=== PATIENT | male | born 1965 | race Caucasian/White ===

== ENCOUNTER 2016-11-19 16:52 | Emergency (ER) | payer MEDICAID, OTHER ==
[~2016-11-19] VITALS: Ht 165.1 cm; Wt 60.0 kg
[~2016-11-19 16:52] MED LIST: BENZ2 PO; CITA20 PO; GABA300 PO; QUET200 PO; RISP2TAB2 PO; SERO400T3 PO; SERT100 PO; SYMB160A INH; TRAZ100T4 PO
[2016-11-19 17:03] VITALS: BP 121/79; PULSE 76; RESP 18; TEMP 98.7; O2SAT 94
--- NOTE | 2016-11-19 17:14 | PD ---
HPI Chief Complaint: Psychiatric Symptoms Time Seen by Provider: 17:10 Travel History International Travel<30 days: No Contact w/Intl Traveler<30days: No Traveled to known affect area: No History of Present Illness HPI 51-year-old male presents to the emergency Department under Philippe act, sent from [facility]. According the AbilTo act, the patient is under Philippe act for suicidal ideation. He has a history of bipolar disorder. Patient was apparently at [facility], he started banging his head against the wall, causing a laceration. The patient will not answer my questions and states "I don't care". He does state that he wants to kill himself, but will not elaborate. Patient denies any alcohol, tobacco, illicit drug use. He will not tell me what medications he is on. He is unsure of his tetanus immunization is up-to-date. PFSH Past Medical History Medical History: Denies Significant Hx Arthritis: No Asthma: Yes Bipolar Disorder: Yes Anxiety: Yes (MANIC) Depression: Yes Heart Rhythm Problems: No High Cholesterol: Yes Chemotherapy: No Chest Pain: No Congestive Heart Failure: No COPD: No Cerebrovascular Accident: No Diminished Hearing: No Endocrine: No Gastrointestinal Disorders: Yes GERD: No Genitourinary: No Hiatal Hernia: No Hypertension: Yes Immune Disorder: No Implanted Vascular Access Dvce: No Kidney Stones: No Musculoskeletal: No Neurologic: No Reproductive: No Respiratory: Yes (ASTHMA) Immunizations Current: Yes Migraines: No Radiation Therapy: No Renal Failure: No Schizophrenia: Yes Sickle Cell Disease: No Sleep Apnea: Yes Thyroid Disease: No Ulcer: No Tetanus Vaccination: < 5 Years Influenza Vaccination: Yes PNEUMOCCOCAL Vaccine (Year): 2 Past Surgical History Abdominal Surgery: Yes AICD: No Arteriovenous Shunt: No Cardiac Surgery: No Ear Surgery: No Endocrine Surgery: No Eye Surgery: No Genitourinary Surgery: No Gynecologic Surgery: No Insulin Pump: No Joint Replacement: No Oral Surgery: Yes (Endentulous) Pacemaker: No Thoracic Surgery: No Other Surgery: Yes Social History Alcohol Use: Yes (a few nights ago) Tobacco Use: Yes (7 CIGS DAILY) Substance Use: Yes (CRACK COCAINE) Allergies-Medications (Allergen,Severity, Reaction): Coded Allergies: No Known Allergies (Verified , 11/26/15) Per MAR from facility - NKDA. Reported Meds & Prescriptions Reported Meds & Active Scripts Active Quetiapine Fumarate 200 Mg Tab 400 Mg PO HS 7 Days Benztropine Mesylate 2 Mg Tab 2 Mg PO Q12HR 7 Days Neurontin (Gabapentin) 300 Mg Cap 300 Mg PO BID Symbicort (Budesonide/Formoterol Fumarate) 160 Mcg/4.5 Mcg Aer 2 Puff INH BID Celexa 20 Mg Tab (Citalopram Hydrobromide) 20 Mg Tab 20 Mg PO DAILY Benztropine Mesylate 2 Mg Tab 2 Mg PO DAILY Reported Seroquel XR 400 mg (Quetiapine Fumarate) 400 Mg Tab 400 Mg PO HS Physical Exam Exam Limitations: Psychotic Narrative GENERAL: Well-nourished, well-developed male patient, afebrile. SKIN: Focused skin assessment warm/dry. HEAD: Normocephalic. Patient has a [-] laceration to the occipital scalp. EYES: No scleral icterus. No injection or drainage. NECK: Supple, trachea midline. No JVD or lymphadenopathy. CARDIOVASCULAR: Regular rate and rhythm without murmurs, gallops, or rubs. RESPIRATORY: Breath sounds equal bilaterally. No accessory muscle use. Lungs sounds clear to auscultation. GASTROINTESTINAL: Abdomen soft, non-tender, nondistended. MUSCULOSKELETAL: No cyanosis, or edema. PSYCHIATRIC: Patient keeps saying that "I want to ". He will not answer my questions. Data Data Last Documented VS Vital Signs Date Time Temp Pulse Resp B/P Pulse Ox O2 Delivery O2 Flow Rate FiO2 11/19/16 17:03 98.7 76 18 121/79 94 Orders Complete Blood Count With Diff (11/19/16 17:08) Comprehensive Metabolic Panel (11/19/16 17:08) Psych Screen (11/19/16 17:08) Drug Screen, Random Urine (11/19/16 17:08) Alcohol (Ethanol) (11/19/16 17:08) Salicylates (Aspirin) (11/19/16 17:08) Tylenol (Acetaminophen) (11/19/16 17:08) Tetanus/Diphtheria Tox Adult (Tetanus/Di (11/19/16 17:15) Ct Brain W/O Iv Contrast(Rout) (11/19/16 ) Labs Laboratory Tests Test 11/19/16 17:23 White Blood Count 8.6 TH/MM3 Red Blood Count 5.05 MIL/MM3 Hemoglobin 15.1 GM/DL Hematocrit 45.3 % Mean Corpuscular Volume 89.8 FL Mean Corpuscular Hemoglobin 29.9 PG Mean Corpuscular Hemoglobin 33.4 % Concent Red Cell Distribution Width 13.5 % Platelet Count 263 TH/MM3 Mean Platelet Volume 8.1 FL Neutrophils (%) (Auto) 71.2 % Lymphocytes (%) (Auto) 21.8 % Monocytes (%) (Auto) 5.5 % Eosinophils (%) (Auto) 1.0 % Basophils (%) (Auto) 0.5 % Neutrophils # (Auto) 6.2 TH/MM3 Lymphocytes # (Auto) 1.9 TH/MM3 Monocytes # (Auto) 0.5 TH/MM3 Eosinophils # (Auto) 0.1 TH/MM3 Basophils # (Auto) 0.0 TH/MM3 CBC Comment DIFF FINAL Differential Comment Sodium Level 142 MEQ/L Potassium Level 3.8 MEQ/L Chloride Level 110 MEQ/L Carbon Dioxide Level 22.6 MEQ/L Anion Gap 9 MEQ/L Blood Urea Nitrogen 14 MG/DL Creatinine 0.95 MG/DL Estimat Glomerular Filtration 84 ML/MIN Rate Random Glucose 82 MG/DL Calcium Level 9.1 MG/DL Total Bilirubin 0.3 MG/DL Aspartate Amino Transf 21 U/L (AST/SGOT) Alanine Aminotransferase 24 U/L (ALT/SGPT) Alkaline Phosphatase 105 U/L Total Protein 7.3 GM/DL Albumin 4.2 GM/DL Salicylates Level 6.5 MG/DL Acetaminophen Level LESS THAN 2.0 MCG/ML Ethyl Alcohol Level 76 MG/DL MDM Medical Decision Making Medical Screen Exam Complete: Yes Emergency Medical Condition: Yes Medical Record Reviewed: Yes Interpretation(s) Last Impressions Head CT 11/19/16 0000 Signed Impressions: Service Date/Time: Saturday, November 19, 2016 17:52 - CONCLUSION: Slight scalp swelling. Tova El MD Differential Diagnosis Bipolar disorder versus suicidal ideation versus substance abuse versus intracranial abnormality versus closed head injury versus laceration Narrative Course 51-year-old male presents to the emergency Department under Philippe act, sent from [facility] due to banging his head against the wall causing a laceration to the occipital scalp. According to the chart, the patient's last tetanus immunization was in 2014. CBC, CMP, urine drug screen, alcohol level, salicylate level, Tylenol level are ordered and pending. CT of the brain is ordered and pending. CBC shows no acute abnormality. CMP shows no acute abnormality. Alcohol level is 76. Acetaminophen level is less than 2.0. Salicylate level is 6.5. CT of the brain shows slight scalp swelling. Patient is medically cleared. I spoke to Kiana psychiatric nurse, who called [facility]. They state that they will take the patient back. The nurse is to call report to [facility]. Procedures Procedure Narrative LACERATION LOCATION: Occipital scalp LENGTH: 1 cm NUMBER OF STITCHES/CASSIE: One staple REPAIR: The area of the laceration was prepped with Betadine and sterilely draped. The wound was copiously irrigated and explored without evidence of foreign body, tendon injury or neurovascular injury. The wound was closed using one staple. This was a single layer repair. A sterile dressing was applied. The patient was advised to keep the dressing clean and dry. Patient tolerated the procedure well. Diagnosis Primary Impression: Schizoaffective disorder, bipolar type Additional Impression: Scalp laceration Qualified Code: S01.01XA - Scalp laceration, initial encounter Referrals: Primary Care Physician [facility] Patient Instructions: General Instructions, Laceration (ED), Staple Care (ED) Additional Instructions: Clean laceration twice daily with soap and water and apply [id number] antibiotic ointment. Suture removal in 7-10 days. You may follow up with your primary care physician returned the emergency department for this. Keep laceration clean and dry. No swimming or hot tubs. Follow-up with your primary care physician. Return to the emergency department for any acute worsening of symptoms. Med/Other Pt SpecificInfo: No Change to Meds Disposition: 65 DISC TO PSYCH CARE FACILITY Condition: Stable Shelia Matthews ANDREAS Nov 19, 2016 17:14
[2016-11-19] MEDS ORDERED: TETANUS/DIPHTHERIA TOXOID ADULT 0.5 ML VIAL IM ONE (17:15)
[2016-11-19 17:59] LABS: AUTOMATED NEUTROPHIL # 6.2 TH/MM3 (1.8-7.7); BASOPHIL % 0.5 % (0.0-2.0); EOSINOPHIL # 0.1 TH/MM3 (0-0.4); HEMATOCRIT 45.3 % (39.0-51.0); HEMO FLAGS DIFF FINAL; LYMPH % 21.8 % (9.0-44.0); LYMPHOCYTE # 1.9 TH/MM3 (1.0-4.8); MEAN CELL VOLUME 89.8 FL (80.0-100.0); MEAN CORPUSCULAR HEMOGLOBIN 29.9 PG (27.0-34.0); MEAN CORPUSCULAR HGB CONC 33.4 % (32.0-36.0); MONO % 5.5 % (0.0-8.0); NEUT % 71.2 % (16.0-70.0); PLATELET COUNT 263 TH/MM3 (150-450); RED BLOOD COUNT 5.05 MIL/MM3 (4.50-5.90); RED CELL DISTRIBUTION WIDTH 13.5 % (11.6-17.2); WHITE BLOOD COUNT 8.6 TH/MM3 (4.0-11.0)
--- NOTE | 2016-11-19 18:15 | RADRPT ---
EXAM DATE/TIME: 11/19/2016 17:52 [facility] COMPARISON: CT BRAIN W/O CONTRAST, November 26, 2015, 1:06. INDICATIONS : Self inflicted trauma to head; posterior laceration. RADIATION DOSE: 52.13 CTDIvol (mGy) MEDICAL HISTORY : Hypertension. SURGICAL HISTORY : None. ENCOUNTER: Initial ACUITY: 1 day PAIN SCALE: 4/10 LOCATION: cranial TECHNIQUE: Multiple contiguous axial images were obtained of the head. Using automated exposure control and adj ustment of the mA and/or kV according to patient size, radiation dose was kept as low as reasonably a chievable to obtain optimal diagnostic quality images. FINDINGS: There is no evidence for intracranial hemorrhage, mass effect, mass lesions, edema, or extra-axial fl uid collections. The visualized bony structures appear intact. The ventricles are normal size for t he patient's age. There are no signs of acute infarction for technique. Slight scalp swelling is see n on the left. CONCLUSION: Slight scalp swelling. Tova El MD on November 19, 2016 at 18:12 Board Certified Radiologist. This report was verified electronically.
[2016-11-19 18:25] LABS: ACETAMINOPHEN LESS THAN 2.0 MCG/ML (10.0-30.0); ALT (GPT) 24 U/L (12-78); ANION GAP 9 MEQ/L (5-15); AST (GOT) 21 U/L (15-37); BICARBONATE 22.6 MEQ/L (21.0-32.0); BLOOD UREA NITROGEN 14 MG/DL (7-18); CHLORIDE 110 MEQ/L (98-107); GLOMERULAR FILTRATION RATE 84 ML/MIN (>89); POTASSIUM 3.8 MEQ/L (3.5-5.1); SODIUM (NA) 142 MEQ/L (136-145)
[2016-11-19 18:27] LABS: ALKALINE PHOSPHATASE 105 U/L (45-117); TOTAL BILIRUBIN ADULT 0.3 MG/DL (0.2-1.0)
[2016-11-19 19:00] LABS: AMPHETAMINE, URINE NEG (NEG); BARBITURATES, URINE NEG (NEG); COCAINE, URINE NEG (NEG)
== END 2016-11-19 19:29 ==
LOC: NEPC 16:52
DX: F25.0 Schizoaffective disorder, bipolar type (principal); S01.01XA Laceration without foreign body of scalp, initial encounter; W22.01XA Walked into wall, initial encounter; Y92.538 Other ambulatory health services establishments as the place of occurrence of the external cause; Z79.899 Other long term (current) drug therapy
CPT/HCPCS: 12001; 70450; 80053; 80307; 85025